=== PATIENT | male | born 1955 | race Caucasian/White ===

== ENCOUNTER 2019-09-08 15:08 | Inpatient (IN) | payer BC ==
[~2019-09-08 15:08] MED LIST: Dexamethasone 4 MG/ML SDV IVPUSH ONE; Glycopyrrolate 0.2 MG/ML 5 ML MDV IV ONE; HYDROmorphone 2 MG/ML SDV IV ONE; Lactated Ringers 1,000 ML IV ONE; Lidocaine 2% 5 ML SDV INJECT ONE; Midazolam 1 MG/ML 2 ML SDV IV ONE; Neostigmine Methylsulfate 10 MG/10 ML MDV IVPUSH ONE; Ondansetron 4 MG/2 ML SDV IVPUSH ONE; Phenylephrine 1% 10 MG/ML SDV IV ONE; Propofol 200 MG/20 ML SDV IV ONE; Rocuronium 100 MG/10 ML MDV IV ONE; Succinylcholine 200 MG/10 ML MDV IV ONE; fentaNYL 100 MCG/2 ML SDV IV ONE
[2019-09-08] MEDS ORDERED: metroNIDAZOLE/Normal Saline 500 MG in Premix Bag 1 BAG IV ONE (15:18)
[2019-09-08] MEDS ORDERED: Sodium Chloride 0.9% 1,000 ML IV SCH (15:30)
[2019-09-08] MEDS ORDERED: Piperacillin/Tazobactam 3.375 GM in Sodium Chloride 0.9% 50 ML IV STA (15:34)
--- NOTE | 2019-09-08 15:40 | EDM.PDOC ---
ED HPI GENERAL MEDICAL PROBLEM - General Chief Complaint: Gastrointestinal Problem Stated Complaint: POSSIBLE APPENDIX RUPTURE Time Seen by Provider: 09/08/19 15:15 Source of Information: Reports: Patient History Limitations: Reports: No Limitations - History of Present Illness INITIAL COMMENTS - FREE TEXT/NARRATIVE: RLQ abd pain since saturday sharp shooting pain , worse with movement gradually got worse , vomited once on saturday no diarrhea or BM has had fever and chills was seen in clinic this am by surgeon and sent in for evaluation Onset Date: 09/06/19 Duration: Day(s): (2), Getting Worse Location: Reports: Abdomen Quality: Reports: Ache, Dull Severity: Moderate Improves with: Reports: Rest Worsens with: Reports: Movement Associated Symptoms: Reports: Diaphoresis, Loss of Appetite, Malaise, Nausea/ Vomiting, Weakness Treatments [employer]: Reports: Acetaminophen Abdominal Pain Score (Numeric/FACES): 5 - Related Data Allergies Allergy/AdvReac Type Severity Reaction Status Date / Time No Known Allergies Allergy Verified 09/08/19 15:21 Home Meds: Home Meds NK [No Known Home Meds] 09/08/19 [History] Past Medical History - Past Surgical History GI Surgical History: Reports: Hernia Repair/Other Social & Family History - Tobacco Use Smoking Status *Q: Never Smoker - Caffeine Use Caffeine Use: Reports: Coffee, Soda - Recreational Drug Use Recreational Drug Use: No ED ROS GENERAL - Review of Systems Review Of Systems: Comprehensive ROS is negative, except as noted in HPI. Constitutional: Reports: Fever, Chills, Malaise, Decreased Appetite HEENT: Reports: No Symptoms Respiratory: Reports: No Symptoms Cardiovascular: Reports: No Symptoms Endocrine: Reports: No Symptoms GI/Abdominal: Reports: Abdominal Pain, Anorexia, Constipation, Decreased Appetite, Nausea : Reports: No Symptoms Musculoskeletal: Reports: No Symptoms Skin: Reports: No Symptoms Neurological: Reports: No Symptoms Psychiatric: Reports: No Symptoms Hematologic/Lymphatic: Reports: No Symptoms ED EXAM, GI/ABD - Physical Exam Exam: See Below Text/Narrative:: in obvious pain Exam Limited By: No Limitations General Appearance: Alert, WD/WN, No Apparent Distress Eyes: Bilateral: EOMI Nose: Normal Inspection Throat/Mouth: Normal Oropharynx Head: Atraumatic, Normocephalic Neck: Normal Inspection, Supple, Non-Tender, Full Range of Motion Respiratory/Chest: Lungs Clear, Normal Breath Sounds Cardiovascular: Regular Rate, Rhythm GI/Abdominal Exam: Soft, Guarding, Tender (in RLQ with guarding and in the right flank), Abnormal Bowel Sounds (hypoactive BS) Back Exam: Full Range of Motion Extremities: Normal Range of Motion Neurological: Alert, Oriented, CN II-XII Intact Psychiatric: Normal Affect Skin Exam: Warm EKG INTERPRETATION EKG Date: 09/08/19 Rhythm: NSR [place]: Normal Course - Vital Signs Last Recorded V/S: Last Vital Signs Temp 37.0 C 09/08/19 15:21 Pulse 108 H 09/08/19 15:21 Resp 24 H 09/08/19 15:21 BP 133/83 09/08/19 15:21 Pulse Ox 98 09/08/19 15:21 - Orders/Labs/Meds Orders: Active Orders 24 hr Category Date Time Status Patient Status [ADT] Routine ADT 09/08/19 16:30 Active EKG Documentation Completion [RC] ASDIRECTED Care 09/08/19 15:23 Active Patient to Empty Bladder [RC] ASDIRECTED Care 09/08/19 16:53 Active Verify Patient Consent Obtain [RC] ASDIRECTED Care 09/08/19 16:53 Active Nothing Per Oral Diet [DIET] Diet 09/08/19 Dinner Ordered Abdomen Pelvis wo Cont [CT] Stat Exams 09/08/19 15:17 Taken Chest 2V [CR] Stat Exams 09/08/19 15:24 Taken CULTURE BLOOD [BC] Stat Lab 09/08/19 15:30 Received Sodium Chloride 0.9% [Normal Saline] 1,000 ml Med 09/08/19 15:30 Active IV ASDIRECTED Sequential Compression Device [OM.PC] Routine Oth 09/08/19 16:53 Ordered Resuscitation Status Routine Resus Stat 09/08/19 16:53 Ordered EKG 12 Lead [EK] Routine Ther 09/08/19 15:23 Ordered Medication Orders Sodium Chloride (Normal Saline) 1,000 mls @ 999 mls/hr IV ASDIRECTED ANALY Last Admin: 09/08/19 15:30 Dose: 999 mls/hr Labs: Laboratory Tests 09/08/19 09/08/19 09/08/19 Range/Units 15:30 15:30 15:30 WBC 24.7 H (4.5-12.0) X10-3/uL RBC 5.81 H (4.30-5.75) x10(6)uL Hgb 16.8 (13.5-17.8) g/dL Hct 51.1 (30.0-51.3) % MCV 88.0 (80-96) fL MCH 29.0 (27.7-33.6) pg MCHC 33.0 (32.2-35.4) g/dL RDW 11.6 (11.5-15.5) % Plt Count 307 (125-369) X10(3)uL MPV 7.9 (7.4-10.4) fL Add Manual Diff Yes Neutrophils % (Manual) 84 H (46-82) % Band Neutrophils % 6 (0-6) % Lymphocytes % (Manual) 2 L (13-37) % Monocytes % (Manual) 6 (4-12) % Basophils % (Manual) 2 (0-2) % Sodium 134 L (135-145) mmol/L Potassium 4.1 (3.5-5.3) mmol/L Chloride 97 L (100-110) mmol/L Carbon Dioxide 28 (21-32) mmol/L BUN 21 H (7-18) mg/dL Creatinine 1.3 (0.70-1.30) mg/dL Est Cr Clr Drug Dosing 54.38 mL/min Estimated GFR (MDRD) 56 L (>60) BUN/Creatinine Ratio 16.2 (9-20) Glucose 143 H (80-116) mg/dL Lactic Acid 2.1 H* (0.4-2.0) mmol/L Calcium 9.1 (8.6-10.2) mg/dL Total Bilirubin 2.4 H (0.1-1.3) mg/dL AST 19 (5-25) IU/L ALT 25 (12-36) U/L Alkaline Phosphatase 99 (56-112) IU/L C-Reactive Protein (0.5-0.9) mg/dL Total Protein 8.7 H (6.0-8.0) g/dL Albumin 4.1 (3.2-4.6) g/dL Globulin 4.6 g/dL Albumin/Globulin Ratio 0.9 03/10/20 Range/Units 15:30 WBC (4.5-12.0) X10-3/uL RBC (4.30-5.75) x10(6)uL Hgb (13.5-17.8) g/dL Hct (30.0-51.3) % MCV (80-96) fL MCH (27.7-33.6) pg MCHC (32.2-35.4) g/dL RDW (11.5-15.5) % Plt Count (125-369) X10(3)uL MPV (7.4-10.4) fL Add Manual Diff Neutrophils % (Manual) (46-82) % Band Neutrophils % (0-6) % Lymphocytes % (Manual) (13-37) % Monocytes % (Manual) (4-12) % Basophils % (Manual) (0-2) % Sodium (135-145) mmol/L Potassium (3.5-5.3) mmol/L Chloride (100-110) mmol/L Carbon Dioxide (21-32) mmol/L BUN (7-18) mg/dL Creatinine (0.70-1.30) mg/dL Est Cr Clr Drug Dosing mL/min Estimated GFR (MDRD) (>60) BUN/Creatinine Ratio (9-20) Glucose (80-116) mg/dL Lactic Acid (0.4-2.0) mmol/L Calcium (8.6-10.2) mg/dL Total Bilirubin (0.1-1.3) mg/dL AST (5-25) IU/L ALT (12-36) U/L Alkaline Phosphatase (56-112) IU/L C-Reactive Protein 14.7 H* (0.5-0.9) mg/dL Total Protein (6.0-8.0) g/dL Albumin (3.2-4.6) g/dL Globulin g/dL Albumin/Globulin Ratio Meds: Medications Generic Name Dose Route Start Last Admin Trade Name Freq PRN Reason Stop Dose Admin Sodium Chloride 1,000 mls @ 999 mls/hr 09/08/19 15:30 09/08/19 15:30 Normal Saline IV 999 mls/hr ASDIRECTED ANALY Administration Discontinued Medications Generic Name Dose Route Start Last Admin Trade Name Freq PRN Reason Stop Dose Admin Metronidazole 500 mg/ Premix 100 mls @ 100 mls/hr 09/08/19 15:18 09/08/19 16: 10 IV 03/10/20 16:17 200 mls/hr ONETIME ONE Infusion Piperacillin Sod/Tazobactam 50 mls @ 100 mls/hr 09/08/19 15:34 09/08/19 15:54 Sod 3.375 gm/ Sodium Chloride IV 09/08/19 16:03 100 mls/hr NOW STA Administration - Radiology Interpretation CT Results Date: 09/08/19 (Acute appendicitis , peritonitis) - Re-Assessments/Exams Free Text/Narrative Re-Assessment/Exam: 09/08/19 15:[address] abd : acute appendicitis ? eminent rupture , no air under the diaphragm started on fluids, flagyl and Zosyn Dr Bonilla aware 09/08/19 16:24 pt is being prep for surgery had EKG and Chest Xray done Departure - Departure Time of Disposition: 16:30 Disposition: Admitted As Inpatient 67 Clinical Impression: Acute appendicitis with localized peritonitis - Discharge Information *PRESCRIPTION DRUG MONITORING PROGRAM REVIEWED*: Not Applicable *COPY OF PRESCRIPTION DRUG MONITORING REPORT IN PATIENT [place]: Not Applicable Sepsis Event Note - Evaluation Sepsis Screening Result: Possible Sepsis Risk - Focused Exam Vital Signs: Vital Signs Temp Pulse Resp BP Pulse Ox 09/08/19 15:21 37.0 C 108 H 24 H 133/83 98 Date Exam was Performed: 09/08/19 Time Exam was Performed: 17:01 - My Orders Last 24 Hours: My Active Orders 09/08/19 15:17 Abdomen Pelvis wo Cont [CT] Stat 09/08/19 15:23 EKG Documentation Completion [RC] ASDIRECTED EKG 12 Lead [EK] Routine 09/08/19 15:24 Chest 2V [CR] Stat 09/08/19 15:30 CULTURE BLOOD [BC] Stat Sodium Chloride 0.9% [Normal Saline] 1,000 ml IV ASDIRECTED - Assessment/Plan Last 24 Hours: My Active Orders 09/08/19 15:17 Abdomen Pelvis wo Cont [CT] Stat 09/08/19 15:23 EKG Documentation Completion [RC] ASDIRECTED EKG 12 Lead [EK] Routine 09/08/19 15:24 Chest 2V [CR] Stat 09/08/19 15:30 CULTURE BLOOD [BC] Stat Sodium Chloride 0.9% [Normal Saline] 1,000 ml IV ASDIRECTED
--- NOTE | 2019-09-08 16:58 | PCM.HPR ---
H & P Addendum review - H & P Addendum Review Date of Original H & P: 09/08/19 Date Reviewed: 09/08/19 Time Reviewed: 16:57 Patient was Examined: No Changes Please Note any Changes: Historyand CT all consistent with acute appendicitis, likely perforated. Will proceed with lap appy, possible open. Risks and complications reviewed, consent obtined.
--- NOTE | 2019-09-08 17:51 | CR ---
INDICATION: Preop chest. CHEST, TWO VIEWS: PA and lateral views of the chest were obtained 09/08/19 - no comparisons. The heart appears to be within normal limits in size and shape. The aorta is somewhat tortuous. Overlying EKG leads are noted. An active infiltrate or effusion was not identified. No definite free air is identified. IMPRESSION: No acute process. MTDD
--- NOTE | 2019-09-08 17:59 | CT ---
INDICATION: Right lower quadrant abdominal pain started Saturday night. Dark urine. CT ABDOMEN AND PELVIS WITHOUT CONTRAST: Spiral 2.5 mm axial sections were obtained through the abdomen and pelvis without contrast - renal calculus protocol with sagittal and coronal reconstructions 09/08/2019 - no comparisons. Total exam DLP was 718.49 mGy/cm. There is some minimal scarring at the right lung base - posterior right lower lobe without a definite active infiltrate or effusion. The heart appeared normal in size. No pericardial effusion is noted. A tiny fixed hiatal hernia may be present. The liver, spleen, adrenal glands, and pancreas appear normal. No gallstones were demonstrated. The gallbladder was somewhat dilated which may be on the basis of NPO basis, measuring 98 mm. There appears to be some mild renal cortical scarring with renal fascial thickening. This could be on the basis of previous pyelonephritis and should be correlated clinically. Minimal calcifications are noted at the aorta. No retroperitoneal mass was seen. The appendix is markedly distended measuring 16 mm with an appendicolith at the cecum measuring 6.6 mm. Fairly extensive fat stranding is noted extending into the right pericolic gutter superiorly and into the pelvis inferiorly compatible with fairly extensive peritonitis. However, no free air or bowel obstruction was identified. The prostate is mildly enlarged measuring 52 x 37 x 39 mm transverse, AP and craniocaudad diameters. Hypertrophic degenerative changes and disc disease are noted in the lumbosacral spine with vacuum disc phenomenon noted at L2-3 and L4-5 and L5-S1. Dextroconvex scoliosis of mild degree is noted at the lower middle lumbar spine IMPRESSION: 1. Appendicitis with fairly extensive peritonitis, some minimal ascites in the pelvis but no definite abscess formation or free air. Appendicolith is noted. 2. Renal cortical scarring. 3. Degenerative changes, disc disease, and scoliosis lumbosacral spine. 4. Mild ASD. Report was called to Dr. Son at 1532 hours. [facility]
[2019-09-08] MEDS ORDERED: Morphine 2 MG/ML Syringe IVPUSH PRN (18:34)
--- NOTE | 2019-09-08 18:34 | PCM.OPNOTE ---
- General Post-Op/Procedure Note Date of Surgery/Procedure: 09/08/19 Operative Procedure(s): Lap Appy Findings: Perforated Pre Op Diagnosis: Acute Appendicitis Post-Op Diagnosis: Same Anesthesia Technique: General ET Tube Primary Surgeon: Chris GALLEGOS in mLs: 20 Complications: None Condition: Good
[2019-09-08] MEDS: Piperacillin/Tazobactam 3.375 GM in Sodium Chloride 0.9% 50 ML IV SCH (20:19)
[2019-09-08] MEDS: Albuterol 0.083% 2.5 MG/3 ML Neb Soln NEB SCH ×2 (20:22→23:57)
--- NOTE | 2019-09-09 01:35 | OR ---
DATE OF OPERATION: 09/08/2019 SURGEON: Chris Bonilla MD PREOPERATIVE DIAGNOSIS: Acute appendicitis. POSTOPERATIVE DIAGNOSIS: Acute appendicitis, perforated. PROCEDURE: Laparoscopic appendectomy. ANESTHESIA: General. PROCEDURE IN DETAIL: The patient was brought to the operating room, where general endotracheal anesthesia was administered. The abdomen was prepped with ChloraPrep and draped sterilely. The patient was straight cathed for approximately 100 mL of dark chante urine prior to the prep. The abdomen was prepped and draped sterilely. An infraumbilical incision was made and extended into the peritoneal cavity without difficulty. The Ethel cannulator was introduced and pneumoperitoneum was obtained. There was purulent fluid in the right lower quadrant and pelvic region. 5 mm ports were then placed in the suprapubic position and half-way between the umbilicus and pubis. The patient was placed in Trendelenburg position and rotated to the left. I had to free up some omentum that was densely adhered to the sidewall with blunt and sharp dissection. I was able to identify the cecum and terminal ileum and a hard inflammatory mass just inferior to that. A large thickened sail was present at the ileocecal junction, preventing me from seeing well and working. Therefore, I used an application of the Endo-SUNNY 3.5 mm stapler to transect this large inflammatory fatty piece. This aided in visualization, and I was able to identify the base of the appendix and free up inferiorly and along the sidewall to partially mobilize it. A window was made at the base of the appendix and transected at the base of the cecum with an Endo-SUNNY 3.5 mm stapler. I was then able to do more mobilization and transect the mesoappendix with 2 more applications of the Endo-SUNNY 2.5 mm stapler. A pulsatile vessel was present at the medial staple line of the first firing, and this was controlled with a hemoclip. Both the appendix and the inflammatory fatty tissue was placed in an Endopouch and removed for pathology review. The right lower quadrant was thoroughly irrigated and inspected and return was clear and hemostasis assured. All staple lines were intact. Ports were removed under direct vision and remained hemostatic. Umbilical fascia was closed with [id number] #0 Vicryl. The skin was closed with #4-0 Vicryl subcuticular sutures. Benzoin and Steri-Strips were placed, and Band-Aids applied. The patient tolerated the procedure well. Estimated blood loss 20 mL. Peritoneal fluid was aspirated at the beginning of the procedure and sent for aerobic and anaerobic culture. /[id number] SIRENA/LILY
[2019-09-09] MEDS: Lactated Ringers 1,000 ML IV SCH ×3 (02:28→20:56)
[2019-09-09] MEDS: Piperacillin/Tazobactam 3.375 GM in Sodium Chloride 0.9% 50 ML IV SCH ×4 (02:30→20:59)
[2019-09-09] MEDS: Albuterol 0.083% 2.5 MG/3 ML Neb Soln NEB SCH ×5 (03:02→21:08)
[2019-09-09] MEDS: Acetaminophen/HYDROcodone 325-5 MG Tab PO PRN ×2 (07:22→20:58)
--- NOTE | 2019-09-09 10:20 | PCM.SURGPN ---
- General Info Date of Service: 09/09/19 POD#: 1 Functional Status: Reports: Pain Controlled, Tolerating Diet (clear liquids), Ambulating, Urinating - Review of Systems General: Reports: No Symptoms. Denies: Fever Pulmonary: Reports: No Symptoms Cardiovascular: Reports: No Symptoms Gastrointestinal: Reports: Abdominal Pain (08/10). Denies: Flatus - Patient Data Vitals - Most Recent: Last Vital Signs Temp 98.1 F 09/09/19 07:10 Pulse 101 H 09/09/19 07:35 Resp 18 09/09/19 07:10 BP 110/75 09/09/19 07:10 Pulse Ox 94 L 09/09/19 07:10 Weight - Most Recent: 74.843 kg I&O - Last 24 Hours: Intake & Output 09/08/19 09/09/19 09/09/19 22:59 06:59 14:59 Intake Total 547 1099 50 Output Total 300 Balance 547 799 50 Lab Results Last 24 Hrs: Laboratory Results - last 24 hr 09/08/19 09/08/19 09/08/19 Range/Units 15:30 15:30 15:30 WBC 24.7 H (4.5-12.0) X10-3/uL RBC 5.81 H (4.30-5.75) x10(6)uL Hgb 16.8 (13.5-17.8) g/dL Hct 51.1 (30.0-51.3) % MCV 88.0 (80-96) fL MCH 29.0 (27.7-33.6) pg MCHC 33.0 (32.2-35.4) g/dL RDW 11.6 (11.5-15.5) % Plt Count 307 (125-369) X10(3)uL MPV 7.9 (7.4-10.4) fL Add Manual Diff Yes Neutrophils % (Manual) 84 H (46-82) % Band Neutrophils % 6 (0-6) % Lymphocytes % (Manual) 2 L (13-37) % Monocytes % (Manual) 6 (4-12) % Basophils % (Manual) 2 (0-2) % Hypersegmented Neuts Sodium 134 L (135-145) mmol/L Potassium 4.1 (3.5-5.3) mmol/L Chloride 97 L (100-110) mmol/L Carbon Dioxide 28 (21-32) mmol/L BUN 21 H (7-18) mg/dL Creatinine 1.3 (0.70-1.30) mg/dL Est Cr Clr Drug Dosing 54.38 mL/min Estimated GFR (MDRD) 56 L (>60) BUN/Creatinine Ratio 16.2 (9-20) Glucose 143 H (80-116) mg/dL Lactic Acid 2.1 H* (0.4-2.0) mmol/L Calcium 9.1 (8.6-10.2) mg/dL Total Bilirubin 2.4 H (0.1-1.3) mg/dL AST 19 (5-25) IU/L ALT 25 (12-36) U/L Alkaline Phosphatase 99 (56-112) IU/L C-Reactive Protein (0.5-0.9) mg/dL Total Protein 8.7 H (6.0-8.0) g/dL Albumin 4.1 (3.2-4.6) g/dL Globulin 4.6 g/dL Albumin/Globulin Ratio 0.9 09/08/19 09/09/19 Range/Units 15:30 06:00 WBC 18.0 H (4.5-12.0) X10-3/uL RBC 4.45 (4.30-5.75) x10(6)uL Hgb 12.8 L D (13.5-17.8) g/dL Hct 39.2 D (30.0-51.3) % MCV 88.1 (80-96) fL MCH 28.9 (27.7-33.6) pg MCHC 32.8 (32.2-35.4) g/dL RDW 11.7 (11.5-15.5) % Plt Count 232 (125-369) X10(3)uL MPV 7.5 (7.4-10.4) fL Add Manual Diff Yes Neutrophils % (Manual) 95 H (46-82) % Band Neutrophils % (0-6) % Lymphocytes % (Manual) 2 L (13-37) % Monocytes % (Manual) 3 L (4-12) % Basophils % (Manual) (0-2) % Hypersegmented Neuts Few Sodium (135-145) mmol/L Potassium (3.5-5.3) mmol/L Chloride (100-110) mmol/L Carbon Dioxide (21-32) mmol/L BUN (7-18) mg/dL Creatinine (0.70-1.30) mg/dL Est Cr Clr Drug Dosing mL/min Estimated GFR (MDRD) (>60) BUN/Creatinine Ratio (9-20) Glucose (80-116) mg/dL Lactic Acid (0.4-2.0) mmol/L Calcium (8.6-10.2) mg/dL Total Bilirubin (0.1-1.3) mg/dL AST (5-25) IU/L ALT (12-36) U/L Alkaline Phosphatase (56-112) IU/L C-Reactive Protein 14.7 H* (0.5-0.9) mg/dL Total Protein (6.0-8.0) g/dL Albumin (3.2-4.6) g/dL Globulin g/dL Albumin/Globulin Ratio Med Orders - Current: Current Medications Hydrocodone Bitart/Acetaminophen (Doran 325-5 Mg) 1 tab PO Q4H PRN PRN Reason: Pain (mild 1-3) Last Admin: 09/09/19 07:22 Dose: 1 tab Albuterol (Proventil Neb Soln) 2.5 mg NEB Q4H [facility] Last Admin: 09/09/19 07:23 Dose: 2.5 mg Piperacillin Sod/Tazobactam (Sod 3.375 gm/ Sodium Chloride) 50 mls @ 100 mls/ hr IV Q6H [facility] Stop: 09/13/19 21:01 Last Admin: 09/09/19 08:25 Dose: 100 mls/hr Lactated Ringer's (Ringers, Lactated) 1,000 mls @ 125 mls/hr IV ASDIRECTED [facility] Last Admin: 09/09/19 02:28 Dose: 125 mls/hr Morphine Sulfate (Morphine) 2 mg IVPUSH Q1H PRN PRN Reason: Pain (severe 7-10) Discontinued Medications Sodium Chloride (Normal Saline) 1,000 mls @ 999 mls/hr IV ASDIRECTED [facility] Last Admin: 09/08/19 15:30 Dose: 999 mls/hr Metronidazole 500 mg/ Premix 100 mls @ 100 mls/hr IV ONETIME ONE Stop: 09/08/19 16:17 Last Infusion: 09/08/19 16:10 Dose: 200 mls/hr Piperacillin Sod/Tazobactam (Sod 3.375 gm/ Sodium Chloride) 50 mls @ 100 mls/ hr IV NOW STA Stop: 09/08/19 16:03 Last Admin: 09/08/19 15:54 Dose: 100 mls/hr - Exam Wound/Incisions: Healing Well, Dressing Dry and Intact General: Alert, Oriented GI/Abdominal Exam: Soft, Non-Tender Sepsis Event Note - Evaluation Sepsis Screening Result: No Definite Risk - Focused Exam Vital Signs: Vital Signs Temp Pulse Resp BP Pulse Ox 09/09/19 07:35 101 H 09/09/19 07:23 85 09/09/19 07:10 98.1 F 85 18 110/75 94 L 09/09/19 03:02 82 09/09/19 00:02 98.4 F 82 18 111/46 L 94 L 09/08/19 23:58 94 Date Exam was Performed: 09/09/19 Time Exam was Performed: 10:18 - Problem List Review Problem List Initiated/Reviewed/Updated: Yes - My Orders Last 24 Hours: Active Orders 24 hr Category Date Time Status Admission Status [Patient Status] [ADT] Routine ADT 09/08/19 18:37 Active Patient Status [ADT] Routine ADT 09/08/19 16:30 Active Oxygen Therapy Adult [Oxygen Therapy, ED] [RC] Care 09/08/19 18:54 Active ASDIRECTED Patient to Empty Bladder [RC] ASDIRECTED Care 09/08/19 16:53 Active RT Aerosol Therapy [RC] ASDIRECTED Care 09/08/19 18:53 Active RT Incentive Spirometry [RC] Q2HWA Care 09/08/19 18:34 Active Up With Assistance [RC] QSHIFT Care 09/08/19 18:34 Active Vital Signs [RC] PER UNIT ROUTINE Care 09/08/19 18:34 Active Clear Liquid Diet [DIET] Diet 09/09/19 Breakfast Ordered Nothing Per Oral Diet [DIET] Diet 09/08/19 Dinner Ordered CBC WITH AUTO DIFF [HEME] DAILY Lab 09/10/19 05:11 Ordered CBC WITH AUTO DIFF [HEME] DAILY Lab 09/11/19 05:11 Ordered CULTURE ANAEROBIC [RM] Routine Lab 09/08/19 17:48 Received CULTURE BLOOD [BC] Stat Lab 09/08/19 15:30 Received CULTURE ROUTINE + SMEAR [RM] Routine Lab 09/08/19 17:48 Received Acetaminophen/HYDROcodone [Doran 325-5 MG] Med 09/08/19 18:34 Active 1 tab PO Q4H PRN Albuterol [Proventil Neb Soln] Med 09/08/19 20:00 Active 2.5 mg NEB Q4H Lactated Ringers [Ringers, Lactated] 1,000 ml Med 09/08/19 19:00 Active IV ASDIRECTED Morphine Med 09/08/19 18:34 Active 2 mg IVPUSH Q1H PRN Piperacillin/Tazobactam [Zosyn] 3.375 gm Med 09/08/19 21:00 Active Sodium Chloride 0.9% [Normal Saline] 50 ml IV Q6H SCD [Sequential Compression Device] [OM.PC] Routine Oth 09/08/19 18:39 Ordered Sequential Compression Device [OM.PC] Routine Oth 09/08/19 16:53 Ordered Resuscitation Status Routine Resus Stat 09/08/19 16:53 Ordered EKG 12 Lead [EK] Routine Ther 09/08/19 15:23 Ordered Medication Orders Hydrocodone Bitart/Acetaminophen (Doran 325-5 Mg) 1 tab PO Q4H PRN PRN Reason: Pain (mild 1-3) Last Admin: 09/09/19 07:22 Dose: 1 tab Albuterol (Proventil Neb Soln) 2.5 mg NEB Q4H ANALY Last Admin: 09/09/19 07:23 Dose: 2.5 mg Admin: 09/09/19 03:02 Dose: 2.5 mg Admin: 09/08/19 23:57 Dose: 2.5 mg Admin: 09/08/19 20:22 Dose: 2.5 mg Piperacillin Sod/Tazobactam (Sod 3.375 gm/ Sodium Chloride) 50 mls @ 100 mls/ hr IV Q6H ANALY Stop: 09/13/19 21:01 Last Admin: 09/09/19 08:25 Dose: 100 mls/hr Admin: 09/09/19 02:30 Dose: 100 mls/hr Admin: 09/08/19 20:19 Dose: 100 mls/hr Lactated Ringer's (Ringers, Lactated) 1,000 mls @ 125 mls/hr IV ASDIRECTED ANALY Last Admin: 09/09/19 02:28 Dose: 125 mls/hr Morphine Sulfate (Morphine) 2 mg IVPUSH Q1H PRN PRN Reason: Pain (severe 7-10) - Assessment Assessment (Free Text/Narrative):: Doing well, cont cleat liquids WBC down to 18 - Plan Plan (Free Text/Narrative):: Cont as is
[2019-09-10] MEDS: Albuterol 0.083% 2.5 MG/3 ML Neb Soln NEB SCH ×3 (01:58→07:28)
[2019-09-10] MEDS: Piperacillin/Tazobactam 3.375 GM in Sodium Chloride 0.9% 50 ML IV SCH ×4 (03:31→20:47)
[2019-09-10] MEDS: Lactated Ringers 1,000 ML IV SCH ×3 (06:16→23:04)
[2019-09-10] MEDS: Acetaminophen/HYDROcodone 325-5 MG Tab PO PRN ×2 (07:27→12:22)
[2019-09-10] MEDS ORDERED: Iopamidol 755 Mg/ML 100 ML Bottle IV ONE (12:31)
[2019-09-10] MEDS: Ketorolac 30 MG/ML SDV IVPUSH SCH ×2 (13:55→18:57)
[2019-09-10] MEDS: Pantoprazole 40 MG Vial IVPUSH SCH (13:56)
--- NOTE | 2019-09-10 14:02 | CT ---
INDICATION: Question ileus, patient has bloating and generalized pain, is status post appendectomy Saturday. CT ABDOMEN AND PELVIS WITH CONTRAST: Spiral 3.75 mm axial sections were obtained through the abdomen and pelvis with 100 mL Isovue 370 at 2 mL/sec, with sagittal and coronal reconstructions 09/10/19 and compared with 09/08/19. Total exam DLP was 942.86 mGy-cm. There is a new finding of bibasilar pleural parenchymal change compatible with minimal consolidating pneumonia and pleuritis on the left and moderate consolidating and pleuritis on the right. There may be some atelectasis also in these areas of the lower lobes bilaterally. The heart appears enlarged. No pericardial effusion was seen. No change in appearance of the upper abdominal organs was identified except to note fairly marked dilatation of the small bowel extending to the level of the upper pelvis where bowel loops transition to relatively normal caliber. They still appear somewhat distended and are filled with air-fluid levels scattered throughout the small bowel loops. No evidence of free air was seen. There is some ascites, which remains present in the pelvis - was present on the previous study also - preoperatively. There is some fat stranding in the area of the postsurgical site compatible with postsurgical change. However, no definite abscess formation is identified. IMPRESSION: Fairly marked dilatation of the small bowel, especially the jejunum , with transition to a smaller diameter distal jejunum - ileum in the mid-upper pelvis - lower abdomen. There is some minimal fluid in that area. There is pelvic ascites, which was present previously and appears unchanged. The operative site shows evidence of postsurgical change - fat stranding, but no definite abscess formation or perforation. Report was given by phone to Dr. Bonilla at 1305 hours. [place]
--- NOTE | 2019-09-10 18:21 | PCM.SURGPN ---
- General Info Date of Service: 09/10/19 POD#: 2 Functional Status: Reports: Pain Controlled, Ambulating, Urinating, Incentive Spirometry - Review of Systems General: Reports: No Symptoms Pulmonary: Reports: Shortness of Breath (due to distended abdomen and ileus) Gastrointestinal: Reports: Abdominal Pain (better after starting to pass flatus this afternoon) Genitourinary: Reports: No Symptoms - Patient Data Vitals - Most Recent: Last Vital Signs Temp 100.0 F 09/10/19 12:15 Pulse 83 09/10/19 12:15 Resp 18 09/10/19 12:15 BP 146/96 H 09/10/19 12:15 Pulse Ox 93 L 09/10/19 12:15 Weight - Most Recent: 74.843 kg I&O - Last 24 Hours: Intake & Output 09/10/19 09/10/19 09/10/19 06:59 14:59 22:59 Intake Total 857 1340 Balance 857 1340 Lab Results Last 24 Hrs: Laboratory Results - last 24 hr 09/10/19 09/10/19 Range/Units 06:45 13:50 WBC 13.3 H (4.5-12.0) X10-3/uL RBC 4.22 L (4.30-5.75) x10(6)uL Hgb 12.6 L (13.5-17.8) g/dL Hct 36.9 (30.0-51.3) % MCV 87.5 (80-96) fL MCH 29.8 (27.7-33.6) pg MCHC 34.1 (32.2-35.4) g/dL RDW 12.0 (11.5-15.5) % Plt Count 224 (125-369) X10(3)uL MPV 7.5 (7.4-10.4) fL Add Manual Diff Yes Neutrophils % (Manual) 89 H (46-82) % Lymphocytes % (Manual) 8 L (13-37) % Monocytes % (Manual) 3 L (4-12) % Sodium 137 (135-145) mmol/L Potassium 4.5 (3.5-5.3) mmol/L Chloride 101 (100-110) mmol/L Carbon Dioxide 29 (21-32) mmol/L BUN 18 (7-18) mg/dL Creatinine 1.1 (0.70-1.30) mg/dL Est Cr Clr Drug Dosing 64.26 mL/min Estimated GFR (MDRD) > 60 (>60) BUN/Creatinine Ratio 16.4 (9-20) Glucose 107 (80-116) mg/dL Calcium 8.1 L (8.6-10.2) mg/dL Sumeet Results Last 24 Hrs: Microbiology 09/08/19 15:30 Aerobic Blood Culture - Preliminary Blood NO GROWTH AFTER 2 DAYS Anaerobic Blood Culture - Preliminary NO GROWTH AFTER 2 DAYS 09/08/19 17:48 Gram Stain - Final Peritoneal Fluid Routine Culture - Final Med Orders - Current: Current Medications Piperacillin Sod/Tazobactam (Sod 3.375 gm/ Sodium Chloride) 50 mls @ 100 mls/ hr IV Q6H [facility] [place] Stop: 09/13/19 21:01 Last Admin: 09/10/19 14:47 Dose: 100 mls/hr Lactated Ringer's (Ringers, Lactated) 1,000 mls @ 125 mls/hr IV ASDIRECTED [facility] [place] Last Admin: 09/10/19 14:01 Dose: 125 mls/hr Ketorolac Tromethamine (Toradol) 30 mg IVPUSH Q6H [facility] [place] Stop: 09/15/19 13:37 Last Admin: 09/10/19 13:55 Dose: 30 mg Pantoprazole Sodium (Protonix Iv) 40 mg IVPUSH DAILY [facility] [place] Last Admin: 09/10/19 13:56 Dose: 40 mg Discontinued Medications Hydrocodone Bitart/Acetaminophen ([place] 325-5 Mg) 1 tab PO Q4H PRN PRN Reason: Pain (mild 1-3) Last Admin: 09/10/19 12:22 Dose: 1 tab Albuterol (Proventil Neb Soln) 2.5 mg NEB Q4H [facility] [place] Last Admin: 09/10/19 07:28 Dose: Not Given Sodium Chloride (Normal Saline) 1,000 mls @ 999 mls/hr IV ASDIRECTED [facility] [place] Last Admin: 09/08/19 15:30 Dose: 999 mls/hr Metronidazole 500 mg/ Premix 100 mls @ 100 mls/hr IV ONETIME ONE Stop: 09/08/19 16:17 Last Infusion: 09/08/19 16:10 Dose: 200 mls/hr Piperacillin Sod/Tazobactam (Sod 3.375 gm/ Sodium Chloride) 50 mls @ 100 mls/ hr IV NOW STA Stop: 09/08/19 16:03 Last Admin: 09/08/19 15:54 Dose: 100 mls/hr Iopamidol (Isovue-370 (76%)) 100 ml IV . DIRECTED ONE Stop: 09/10/19 12:32 Last Admin: 09/10/19 12:44 Dose: 100 ml Morphine Sulfate (Morphine) 2 mg IVPUSH Q1H PRN PRN Reason: Pain (severe 7-10) - Exam Wound/Incisions: Dressing Dry and Intact Lungs: Clear to Auscultation, Decreased Breath Sounds (in bases) GI/Abdominal Exam: Distended Sepsis Event Note - Evaluation Sepsis Screening Result: Sepsis Risk - Focused Exam Vital Signs: Vital Signs Temp Pulse Resp BP Pulse Ox 09/10/19 12:15 100.0 F 83 18 146/96 H 93 L 09/10/19 07:15 99.4 F 92 18 146/101 H 92 L Date Exam was Performed: 09/10/19 Time Exam was Performed: 18:15 - Problem List Review Problem List Initiated/Reviewed/Updated: Yes - My Orders Last 24 Hours: Active Orders 24 hr Category Date Time Status Intake and Output [RC] ASDIRECTED Care 09/10/19 13:10 Active NPO [Nothing Per Oral Diet] [DIET] Diet 09/10/19 Dinner Active CBC WITH AUTO DIFF [HEME] DAILY Lab 09/11/19 05:11 Ordered Ketorolac [Toradol] Med 09/10/19 13:10 Active 30 mg IVPUSH Q6H Pantoprazole [ProTONIX IV] Med 09/10/19 13:10 Active 40 mg IVPUSH DAILY Medication Orders Piperacillin Sod/Tazobactam (Sod 3.375 gm/ Sodium Chloride) 50 mls @ 100 mls/ hr IV Q6H [facility] Stop: 09/13/19 21:01 Last Admin: 09/10/19 14:47 Dose: 100 mls/hr Admin: 09/10/19 09:54 Dose: 100 mls/hr Admin: 09/10/19 03:31 Dose: 100 mls/hr Admin: 09/09/19 20:59 Dose: 100 mls/hr Admin: 09/09/19 14:57 Dose: 100 mls/hr Admin: 09/09/19 08:25 Dose: 100 mls/hr Admin: 09/09/19 02:30 Dose: 100 mls/hr Admin: 09/08/19 20:19 Dose: 100 mls/hr Lactated Ringer's (Ringers, Lactated) 1,000 mls @ 125 mls/hr IV ASDIRECTED [facility] [place] Last Admin: 09/10/19 14:01 Dose: 125 mls/hr Infusion: 09/10/19 14:01 Dose: 125 mls/hr Admin: 09/10/19 06:16 Dose: 125 mls/hr Infusion: 09/10/19 04:56 Dose: 125 mls/hr Admin: 09/09/19 20:56 Dose: 125 mls/hr Infusion: 09/09/19 20:20 Dose: 125 mls/hr Admin: 09/09/19 12:20 Dose: 125 mls/hr Infusion: 09/09/19 10:28 Dose: 125 mls/hr Admin: 09/09/19 02:28 Dose: 125 mls/hr Ketorolac Tromethamine (Toradol) 30 mg IVPUSH Q6H [facility] [place] Stop: 09/15/19 13:37 Last Admin: 09/10/19 13:55 Dose: 30 mg Pantoprazole Sodium (Protonix Iv) 40 mg IVPUSH DAILY [facility] [place] Last Admin: 09/10/19 13:56 Dose: 40 mg - Assessment Assessment (Free Text/Narrative):: CT shows dilated small bowel, no free air Clinically has atelectasis rather than pneumonia Cultures show E Coli sensitive to Zosyn - Plan Plan (Free Text/Narrative):: Will keep NPO and Cont IV Fluids D/C narcotics and use Toradol Encourage IS and walking
[2019-09-11] MEDS: Ketorolac 30 MG/ML SDV IVPUSH SCH ×4 (01:35→19:03)
[2019-09-11] MEDS: Piperacillin/Tazobactam 3.375 GM in Sodium Chloride 0.9% 50 ML IV SCH ×4 (03:06→21:13)
[2019-09-11] MEDS: Lactated Ringers 1,000 ML IV SCH ×2 (07:48→17:19)
[2019-09-11] MEDS: Pantoprazole 40 MG Vial IVPUSH SCH (09:07)
--- NOTE | 2019-09-11 10:28 | PCM.SURGPN ---
- General Info Date of Service: 09/11/19 POD#: 3 Functional Status: Reports: Pain Controlled, Ambulating - Review of Systems General: Reports: No Symptoms. Denies: Fever Pulmonary: Reports: No Symptoms Gastrointestinal: Reports: Flatus. Denies: Abdominal Pain - Patient Data Vitals - Most Recent: Last Vital Signs Temp 98.4 F 09/11/19 04:00 Pulse 82 09/11/19 04:00 Resp 18 09/11/19 04:00 BP 149/97 H 09/11/19 04:00 Pulse Ox 93 L 09/11/19 04:00 Weight - Most Recent: 74.843 kg I&O - Last 24 Hours: Intake & Output 09/10/19 09/11/19 09/11/19 22:59 06:59 14:59 Intake Total 1829 Balance 1829 Lab Results Last 24 Hrs: Laboratory Results - last 24 hr 09/10/19 09/11/19 Range/Units 13:50 06:40 WBC 11.5 (4.5-12.0) X10-3/uL RBC 4.28 L (4.30-5.75) x10(6)uL Hgb 12.7 L (13.5-17.8) g/dL Hct 37.4 (30.0-51.3) % MCV 87.4 (80-96) fL MCH 29.7 (27.7-33.6) pg MCHC 34.0 (32.2-35.4) g/dL RDW 11.5 (11.5-15.5) % Plt Count 218 (125-369) X10(3)uL MPV 7.4 (7.4-10.4) fL Add Manual Diff Yes Neutrophils % (Manual) 83 H (46-82) % Lymphocytes % (Manual) 12 L (13-37) % Monocytes % (Manual) 5 (4-12) % Sodium 137 (135-145) mmol/L Potassium 4.5 (3.5-5.3) mmol/L Chloride 101 (100-110) mmol/L Carbon Dioxide 29 (21-32) mmol/L BUN 18 (7-18) mg/dL Creatinine 1.1 (0.70-1.30) mg/dL Est Cr Clr Drug Dosing 64.26 mL/min Estimated GFR (MDRD) > 60 (>60) BUN/Creatinine Ratio 16.4 (9-20) Glucose 107 (80-116) mg/dL Calcium 8.1 L (8.6-10.2) mg/dL [place] Results Last 24 Hrs: Microbiology 09/08/19 15:30 Aerobic Blood Culture - Preliminary Blood NO GROWTH AFTER 2 DAYS Anaerobic Blood Culture - Preliminary NO GROWTH AFTER 2 DAYS 09/08/19 17:48 Gram Stain - Final Peritoneal Fluid Routine Culture - Final Med Orders - Current: Current Medications Piperacillin Sod/Tazobactam (Sod 3.375 gm/ Sodium Chloride) 50 mls @ 100 mls/ hr IV Q6H [facility] Stop: 09/13/19 21:01 Last Admin: 09/11/19 09:08 Dose: 100 mls/hr Lactated Ringer's (Ringers, Lactated) 1,000 mls @ 125 mls/hr IV ASDIRECTED [facility] Last Admin: 09/11/19 07:48 Dose: 125 mls/hr Ketorolac Tromethamine (Toradol) 30 mg IVPUSH Q6H [facility] Stop: 09/15/19 13:37 Last Admin: 09/11/19 07:47 Dose: 30 mg Pantoprazole Sodium (Protonix Iv) 40 mg IVPUSH DAILY [facility] Last Admin: 09/11/19 09:07 Dose: 40 mg Discontinued Medications Hydrocodone Bitart/Acetaminophen ([place] 325-5 Mg) 1 tab PO Q4H PRN PRN Reason: Pain (mild 1-3) Last Admin: 09/10/19 12:22 Dose: 1 tab Albuterol (Proventil Neb Soln) 2.5 mg NEB Q4H [facility] Last Admin: 09/10/19 07:28 Dose: Not Given Sodium Chloride (Normal Saline) 1,000 mls @ 999 mls/hr IV ASDIRECTED [facility] Last Admin: 09/08/19 15:30 Dose: 999 mls/hr Metronidazole 500 mg/ Premix 100 mls @ 100 mls/hr IV ONETIME ONE Stop: 09/08/19 16:17 Last Infusion: 09/08/19 16:10 Dose: 200 mls/hr Piperacillin Sod/Tazobactam (Sod 3.375 gm/ Sodium Chloride) 50 mls @ 100 mls/ hr IV NOW STA Stop: 09/08/19 16:03 Last Admin: 09/08/19 15:54 Dose: 100 mls/hr Iopamidol (Isovue-370 (76%)) 100 ml IV . DIRECTED ONE Stop: 09/10/19 12:32 Last Admin: 09/10/19 12:44 Dose: 100 ml Morphine Sulfate (Morphine) 2 mg IVPUSH Q1H PRN PRN Reason: Pain (severe 7-10) - Exam Wound/Incisions: Dressing Dry and Intact General: Alert, Oriented GI/Abdominal Exam: Soft, Non-Tender, Distended Sepsis Event Note - Evaluation Sepsis Screening Result: No Definite Risk - Focused Exam Vital Signs: Vital Signs Temp Pulse Resp BP Pulse Ox 09/11/19 04:00 98.4 F 82 18 149/97 H 93 L 09/11/19 00:00 98.4 F 83 18 150/95 H 94 L Date Exam was Performed: 09/11/19 Time Exam was Performed: 10:26 - Problem List Review Problem List Initiated/Reviewed/Updated: Yes - My Orders Last 24 Hours: Active Orders 24 hr Category Date Time Status Intake and Output [RC] ASDIRECTED Care 09/10/19 13:10 Active Full Liquid Diet [DIET] Diet 09/11/19 Lunch Ordered NPO [Nothing Per Oral Diet] [DIET] Diet 09/10/19 Dinner Active Ketorolac [Toradol] Med 09/10/19 13:10 Active 30 mg IVPUSH Q6H Pantoprazole [ProTONIX IV] Med 09/10/19 13:10 Active 40 mg IVPUSH DAILY Medication Orders Piperacillin Sod/Tazobactam (Sod 3.375 gm/ Sodium Chloride) 50 mls @ 100 mls/ hr IV Q6H [facility] Stop: 09/13/19 21:01 Last Admin: 09/11/19 09:08 Dose: 100 mls/hr Admin: 09/11/19 03:06 Dose: 100 mls/hr Admin: 09/10/19 20:47 Dose: 100 mls/hr Admin: 09/10/19 14:47 Dose: 100 mls/hr Admin: 09/10/19 09:54 Dose: 100 mls/hr Admin: 09/10/19 03:31 Dose: 100 mls/hr Admin: 09/09/19 20:59 Dose: 100 mls/hr Admin: 09/09/19 14:57 Dose: 100 mls/hr Admin: 09/09/19 08:25 Dose: 100 mls/hr Admin: 09/09/19 02:30 Dose: 100 mls/hr Admin: 09/08/19 20:19 Dose: 100 mls/hr Lactated Ringer's (Ringers, Lactated) 1,000 mls @ 125 mls/hr IV ASDIRECTED [facility] Last Admin: 09/11/19 07:48 Dose: 125 mls/hr Infusion: 09/11/19 07:04 Dose: 125 mls/hr Admin: 09/10/19 23:04 Dose: 125 mls/hr Infusion: 09/10/19 22:01 Dose: 125 mls/hr Admin: 09/10/19 14:01 Dose: 125 mls/hr Infusion: 09/10/19 14:01 Dose: 125 mls/hr Admin: 09/10/19 06:16 Dose: 125 mls/hr Infusion: 09/10/19 04:56 Dose: 125 mls/hr Admin: 09/09/19 20:56 Dose: 125 mls/hr Infusion: 09/09/19 20:20 Dose: 125 mls/hr Admin: 09/09/19 12:20 Dose: 125 mls/hr Infusion: 09/09/19 10:28 Dose: 125 mls/hr Admin: 09/09/19 02:28 Dose: 125 mls/hr Ketorolac Tromethamine (Toradol) 30 mg IVPUSH Q6H [facility] Stop: 09/15/19 13:37 Last Admin: 09/11/19 07:47 Dose: 30 mg Admin: 09/11/19 01:35 Dose: 30 mg Admin: 09/10/19 18:57 Dose: 30 mg Admin: 09/10/19 13:55 Dose: 30 mg Pantoprazole Sodium (Protonix Iv) 40 mg IVPUSH DAILY [facility] Last Admin: 09/11/19 09:07 Dose: 40 mg Admin: 09/10/19 13:56 Dose: 40 mg - Assessment Assessment (Free Text/Narrative):: Cont to slowly improve - Plan Plan (Free Text/Narrative):: Await ileus to resolve Start liquids again
[2019-09-11] MEDS: Sodium Chloride 0.9% 10 ML Syringe FLUSH PRN ×3 (15:50→21:43)
[2019-09-12] MEDS: Ketorolac 30 MG/ML SDV IVPUSH SCH ×4 (00:19→19:13)
[2019-09-12] MEDS: Lactated Ringers 1,000 ML IV SCH (01:38)
[2019-09-12] MEDS: Sodium Chloride 0.9% 10 ML Syringe FLUSH PRN ×9 (02:43→22:02)
[2019-09-12] MEDS: Piperacillin/Tazobactam 3.375 GM in Sodium Chloride 0.9% 50 ML IV SCH ×4 (02:44→21:28)
[2019-09-12] MEDS: Pantoprazole 40 MG Vial IVPUSH SCH (09:12)
[2019-09-12] MEDS ORDERED: Bisacodyl 10 MG Supp RECTAL ONE (13:17)
--- NOTE | 2019-09-12 13:20 | PCM.SURGPN ---
- General Info Date of Service: 09/12/19 POD#: 4 Functional Status: Reports: Pain Controlled, Tolerating Diet (only sips of liquids), Ambulating - Review of Systems General: Reports: No Symptoms Pulmonary: Reports: No Symptoms Gastrointestinal: Denies: Abdominal Pain, Flatus (since last pm, small BM last pm) - Patient Data Vitals - Most Recent: Last Vital Signs Temp 98.3 F 09/12/19 04:00 Pulse 80 09/12/19 04:00 Resp 16 09/12/19 04:00 BP 143/106 H 09/12/19 04:00 Pulse Ox 94 L 09/12/19 04:00 Weight - Most Recent: 74.843 kg I&O - Last 24 Hours: Intake & Output 09/11/19 09/12/19 09/12/19 22:59 06:59 14:59 Intake Total 1997 1311 1515 Output Total 150 430 175 Balance 9648 302 4726 [place] Results Last 24 Hrs: Microbiology 09/08/19 15:30 Aerobic Blood Culture - Preliminary Blood NO GROWTH AFTER 3 DAYS Anaerobic Blood Culture - Preliminary NO GROWTH AFTER 3 DAYS Med Orders - Current: Current Medications Piperacillin Sod/Tazobactam (Sod 3.375 gm/ Sodium Chloride) 50 mls @ 100 mls/ hr IV Q6H [facility] Stop: 09/13/19 21:01 Last Admin: 09/12/19 09:23 Dose: 100 mls/hr Lactated Ringer's (Ringers, Lactated) 1,000 mls @ 125 mls/hr IV ASDIRECTED [facility] Last Admin: 09/12/19 01:38 Dose: 125 mls/hr Ketorolac Tromethamine (Toradol) 30 mg IVPUSH Q6H [facility] Stop: 09/15/19 13:37 Last Admin: 09/12/19 12:48 Dose: 30 mg Pantoprazole Sodium (Protonix Iv) 40 mg IVPUSH DAILY [facility] Last Admin: 09/12/19 09:12 Dose: 40 mg Sodium Chloride (Saline Flush) 10 ml FLUSH ASDIRECTED PRN PRN Reason: Keep Vein Open Last Admin: 09/12/19 12:48 Dose: 10 ml Discontinued Medications Hydrocodone Bitart/Acetaminophen ([place] 325-5 Mg) 1 tab PO Q4H PRN PRN Reason: Pain (mild 1-3) Last Admin: 09/10/19 12:22 Dose: 1 tab Albuterol (Proventil Neb Soln) 2.5 mg NEB Q4H [facility] Last Admin: 09/10/19 07:28 Dose: Not Given Sodium Chloride (Normal Saline) 1,000 mls @ 999 mls/hr IV ASDIRECTED [facility] Last Admin: 09/08/19 15:30 Dose: 999 mls/hr Metronidazole 500 mg/ Premix 100 mls @ 100 mls/hr IV ONETIME ONE Stop: 09/08/19 16:17 Last Infusion: 09/08/19 16:10 Dose: 200 mls/hr Piperacillin Sod/Tazobactam (Sod 3.375 gm/ Sodium Chloride) 50 mls @ 100 mls/ hr IV NOW STA Stop: 09/08/19 16:03 Last Admin: 09/08/19 15:54 Dose: 100 mls/hr Iopamidol (Isovue-370 (76%)) 100 ml IV . DIRECTED ONE Stop: 09/10/19 12:32 Last Admin: 09/10/19 12:44 Dose: 100 ml Morphine Sulfate (Morphine) 2 mg IVPUSH Q1H PRN PRN Reason: Pain (severe 7-10) - Exam Wound/Incisions: Dressing Dry and Intact GI/Abdominal Exam: Soft, Non-Tender, Distended Sepsis Event Note - Evaluation Sepsis Screening Result: No Definite Risk - Focused Exam Vital Signs: Vital Signs Temp Pulse Resp BP Pulse Ox 09/12/19 04:00 98.3 F 80 16 143/106 H 94 L Date Exam was Performed: 09/12/19 Time Exam was Performed: 13:17 - Problem List Review Problem List Initiated/Reviewed/Updated: Yes - My Orders Last 24 Hours: Active Orders 24 hr Category Date Time Status Communication Order [RC] 08 Care 09/11/19 18:51 Active No Tray Needed Diet [DIET] Diet 09/12/19 Lunch Ordered Sodium Chloride 0.9% [Saline Flush] Med 09/11/19 14:17 Active 10 ml FLUSH ASDIRECTED PRN bisacodyL [Dulcolax] Med 09/12/19 13:17 Once 10 mg RECTAL ONETIME ONE Medication Orders Piperacillin Sod/Tazobactam (Sod 3.375 gm/ Sodium Chloride) 50 mls @ 100 mls/ hr IV Q6H [facility] Stop: 09/13/19 21:01 Last Admin: 09/12/19 09:23 Dose: 100 mls/hr Admin: 09/12/19 02:44 Dose: 100 mls/hr Admin: 09/11/19 21:13 Dose: 100 mls/hr Admin: 09/11/19 15:50 Dose: 100 mls/hr Admin: 09/11/19 09:08 Dose: 100 mls/hr Admin: 09/11/19 03:06 Dose: 100 mls/hr Admin: 09/10/19 20:47 Dose: 100 mls/hr Admin: 09/10/19 14:47 Dose: 100 mls/hr Admin: 09/10/19 09:54 Dose: 100 mls/hr Admin: 09/10/19 03:31 Dose: 100 mls/hr Admin: 09/09/19 20:59 Dose: 100 mls/hr Admin: 09/09/19 14:57 Dose: 100 mls/hr Admin: 09/09/19 08:25 Dose: 100 mls/hr Admin: 09/09/19 02:30 Dose: 100 mls/hr Admin: 09/08/19 20:19 Dose: 100 mls/hr Lactated Ringer's (Ringers, Lactated) 1,000 mls @ 125 mls/hr IV ASDIRECTED [facility] Last Admin: 09/12/19 01:38 Dose: 125 mls/hr Infusion: 09/12/19 01:19 Dose: 125 mls/hr Admin: 09/11/19 17:19 Dose: 125 mls/hr Infusion: 09/11/19 15:48 Dose: 125 mls/hr Admin: 09/11/19 07:48 Dose: 125 mls/hr Infusion: 09/11/19 07:04 Dose: 125 mls/hr Admin: 09/10/19 23:04 Dose: 125 mls/hr Infusion: 09/10/19 22:01 Dose: 125 mls/hr Admin: 09/10/19 14:01 Dose: 125 mls/hr Infusion: 09/10/19 14:01 Dose: 125 mls/hr Admin: 09/10/19 06:16 Dose: 125 mls/hr Infusion: 09/10/19 04:56 Dose: 125 mls/hr Admin: 09/09/19 20:56 Dose: 125 mls/hr Infusion: 09/09/19 20:20 Dose: 125 mls/hr Admin: 09/09/19 12:20 Dose: 125 mls/hr Infusion: 09/09/19 10:28 Dose: 125 mls/hr Admin: 09/09/19 02:28 Dose: 125 mls/hr Ketorolac Tromethamine (Toradol) 30 mg IVPUSH Q6H [facility] Stop: 09/15/19 13:37 Last Admin: 09/12/19 12:48 Dose: 30 mg Admin: 09/12/19 06:44 Dose: 30 mg Admin: 09/12/19 00:19 Dose: 30 mg Admin: 09/11/19 19:03 Dose: 30 mg Admin: 09/11/19 14:15 Dose: 30 mg Admin: 09/11/19 07:47 Dose: 30 mg Admin: 09/11/19 01:35 Dose: 30 mg Admin: 09/10/19 18:57 Dose: 30 mg Admin: 09/10/19 13:55 Dose: 30 mg Pantoprazole Sodium (Protonix Iv) 40 mg IVPUSH DAILY [facility] Last Admin: 09/12/19 09:12 Dose: 40 mg Admin: 09/11/19 09:07 Dose: 40 mg Admin: 09/10/19 13:56 Dose: 40 mg Sodium Chloride (Saline Flush) 10 ml FLUSH ASDIRECTED PRN PRN Reason: Keep Vein Open Last Admin: 09/12/19 12:48 Dose: 10 ml Admin: 09/12/19 10:10 Dose: 10 ml Admin: 09/12/19 09:22 Dose: 10 ml Admin: 09/12/19 03:14 Dose: 10 ml Admin: 09/12/19 02:43 Dose: 10 ml Admin: 09/11/19 21:43 Dose: 10 ml Admin: 09/11/19 21:10 Dose: 10 ml Admin: 09/11/19 15:50 Dose: 10 ml - Assessment Assessment (Free Text/Narrative):: Post-op ileus - Plan Plan (Free Text/Narrative):: Will try suppository Maybe home later today if bowels work better.
[2019-09-13] MEDS: Ketorolac 30 MG/ML SDV IVPUSH SCH ×3 (00:23→15:00)
[2019-09-13] MEDS: Sodium Chloride 0.9% 10 ML Syringe FLUSH PRN ×5 (00:26→09:54)
[2019-09-13] MEDS: Piperacillin/Tazobactam 3.375 GM in Sodium Chloride 0.9% 50 ML IV SCH ×3 (02:49→15:01)
[2019-09-13] MEDS: Pantoprazole 40 MG Vial IVPUSH SCH (09:05)
--- NOTE | 2019-09-13 12:23 | PCM.SURGPN ---
- General Info Date of Service: 09/13/19 POD#: 5 Functional Status: Reports: Pain Controlled, Tolerating Diet, Ambulating, Urinating - Review of Systems General: Reports: No Symptoms Gastrointestinal: Reports: No Symptoms, Flatus (tarted about 0400) Genitourinary: Reports: No Symptoms - Patient Data Vitals - Most Recent: Last Vital Signs Temp 98.1 F 09/13/19 04:00 Pulse 79 09/13/19 04:00 Resp 16 09/13/19 04:00 BP 159/106 H 09/13/19 04:00 Pulse Ox 94 L 09/13/19 04:00 Weight - Most Recent: 74.843 kg I&O - Last 24 Hours: Intake & Output 09/12/19 09/13/19 09/13/19 22:59 06:59 14:59 Intake Total 250 250 Output Total 400 270 Balance -150 -20 Sume[place] Results Last 24 Hrs: Microbiology 09/08/19 17:48 Gram Stain - Final Peritoneal Fluid Routine Culture - Final Anaerobic Culture - Final No Growth 09/08/19 15:30 Aerobic Blood Culture - Preliminary Blood NO GROWTH AFTER 4 DAYS Anaerobic Blood Culture - Preliminary NO GROWTH AFTER 4 DAYS Med Orders - Current: Current Medications Piperacillin Sod/Tazobactam (Sod 3.375 gm/ Sodium Chloride) 50 mls @ 100 mls/ hr IV Q6H [facility] Stop: 09/13/19 21:01 Last Admin: 09/13/19 09:23 Dose: 100 mls/hr Lactated Ringer's (Ringers, Lactated) 1,000 mls @ 125 mls/hr IV ASDIRECTED [facility] Last Admin: 09/12/19 01:38 Dose: 125 mls/hr Ketorolac Tromethamine (Toradol) 30 mg IVPUSH Q6H [facility] Stop: 09/15/19 13:37 Last Admin: 09/13/19 06:33 Dose: 30 mg Pantoprazole Sodium (Protonix Iv) 40 mg IVPUSH DAILY [facility] Last Admin: 09/13/19 09:05 Dose: 40 mg Sodium Chloride (Saline Flush) 10 ml FLUSH ASDIRECTED PRN PRN Reason: Keep Vein Open Last Admin: 09/13/19 09:54 Dose: 10 ml Discontinued Medications Hydrocodone Bitart/Acetaminophen ([place] 325-5 Mg) 1 tab PO Q4H PRN PRN Reason: Pain (mild 1-3) Last Admin: 09/10/19 12:22 Dose: 1 tab Albuterol (Proventil Neb Soln) 2.5 mg NEB Q4H [facility] Last Admin: 09/10/19 07:28 Dose: Not Given Bisacodyl (Dulcolax) 10 mg RECTAL ONETIME ONE Stop: 09/12/19 13:18 Last Admin: 09/12/19 13:36 Dose: 10 mg Sodium Chloride (Normal Saline) 1,000 mls @ 999 mls/hr IV ASDIRECTED [facility] Last Admin: 09/08/19 15:30 Dose: 999 mls/hr Metronidazole 500 mg/ Premix 100 mls @ 100 mls/hr IV ONETIME ONE Stop: 09/08/19 16:17 Last Infusion: 09/08/19 16:10 Dose: 200 mls/hr Piperacillin Sod/Tazobactam (Sod 3.375 gm/ Sodium Chloride) 50 mls @ 100 mls/ hr IV NOW STA Stop: 09/08/19 16:03 Last Admin: 09/08/19 15:54 Dose: 100 mls/hr Iopamidol (Isovue-370 (76%)) 100 ml IV . DIRECTED ONE Stop: 09/10/19 12:32 Last Admin: 09/10/19 12:44 Dose: 100 ml Morphine Sulfate (Morphine) 2 mg IVPUSH Q1H PRN PRN Reason: Pain (severe 7-10) - Exam Wound/Incisions: Dressing Dry and Intact GI/Abdominal Exam: Soft, Non-Tender, Distended (lesws than yesterday) Sepsis Event Note - Evaluation Sepsis Screening Result: No Definite Risk - Focused Exam Vital Signs: Vital Signs Temp Pulse Resp BP Pulse Ox 09/13/19 04:00 98.1 F 79 16 159/106 H 94 L Date Exam was Performed: 09/13/19 Time Exam was Performed: 12:21 - Problem List Review Problem List Initiated/Reviewed/Updated: Yes - My Orders Last 24 Hours: Active Orders 24 hr Category Date Time Status Ready for Discharge [RC] PER UNIT ROUTINE Care 09/13/19 12:20 Ordered Medication Orders Piperacillin Sod/Tazobactam (Sod 3.375 gm/ Sodium Chloride) 50 mls @ 100 mls/ hr IV Q6H [facility] Stop: 09/13/19 21:01 Last Admin: 09/13/19 09:23 Dose: 100 mls/hr Admin: 09/13/19 02:49 Dose: 100 mls/hr Admin: 09/12/19 21:28 Dose: 100 mls/hr Admin: 09/12/19 15:04 Dose: 100 mls/hr Admin: 09/12/19 09:23 Dose: 100 mls/hr Admin: 09/12/19 02:44 Dose: 100 mls/hr Admin: 09/11/19 21:13 Dose: 100 mls/hr Admin: 09/11/19 15:50 Dose: 100 mls/hr Admin: 09/11/19 09:08 Dose: 100 mls/hr Admin: 09/11/19 03:06 Dose: 100 mls/hr Admin: 09/10/19 20:47 Dose: 100 mls/hr Admin: 09/10/19 14:47 Dose: 100 mls/hr Admin: 09/10/19 09:54 Dose: 100 mls/hr Admin: 09/10/19 03:31 Dose: 100 mls/hr Admin: 09/09/19 20:59 Dose: 100 mls/hr Admin: 09/09/19 14:57 Dose: 100 mls/hr Admin: 09/09/19 08:25 Dose: 100 mls/hr Admin: 09/09/19 02:30 Dose: 100 mls/hr Admin: 09/08/19 20:19 Dose: 100 mls/hr Lactated Ringer's (Ringers, Lactated) 1,000 mls @ 125 mls/hr IV ASDIRECTED [facility] Last Admin: 09/12/19 01:38 Dose: 125 mls/hr Infusion: 09/12/19 01:19 Dose: 125 mls/hr Admin: 09/11/19 17:19 Dose: 125 mls/hr Infusion: 09/11/19 15:48 Dose: 125 mls/hr Admin: 09/11/19 07:48 Dose: 125 mls/hr Infusion: 09/11/19 07:04 Dose: 125 mls/hr Admin: 09/10/19 23:04 Dose: 125 mls/hr Infusion: 09/10/19 22:01 Dose: 125 mls/hr Admin: 09/10/19 14:01 Dose: 125 mls/hr Infusion: 09/10/19 14:01 Dose: 125 mls/hr Admin: 09/10/19 06:16 Dose: 125 mls/hr Infusion: 09/10/19 04:56 Dose: 125 mls/hr Admin: 09/09/19 20:56 Dose: 125 mls/hr Infusion: 09/09/19 20:20 Dose: 125 mls/hr Admin: 09/09/19 12:20 Dose: 125 mls/hr Infusion: 09/09/19 10:28 Dose: 125 mls/hr Admin: 09/09/19 02:28 Dose: 125 mls/hr Ketorolac Tromethamine (Toradol) 30 mg IVPUSH Q6H [facility] Stop: 09/15/19 13:37 Last Admin: 09/13/19 06:33 Dose: 30 mg Admin: 09/13/19 00:23 Dose: 30 mg Admin: 09/12/19 19:13 Dose: 30 mg Admin: 09/12/19 12:48 Dose: 30 mg Admin: 09/12/19 06:44 Dose: 30 mg Admin: 09/12/19 00:19 Dose: 30 mg Admin: 09/11/19 19:03 Dose: 30 mg Admin: 09/11/19 14:15 Dose: 30 mg Admin: 09/11/19 07:47 Dose: 30 mg Admin: 09/11/19 01:35 Dose: 30 mg Admin: 09/10/19 18:57 Dose: 30 mg Admin: 09/10/19 13:55 Dose: 30 mg Pantoprazole Sodium (Protonix Iv) 40 mg IVPUSH DAILY [facility] Last Admin: 09/13/19 09:05 Dose: 40 mg Admin: 09/12/19 09:12 Dose: 40 mg Admin: 09/11/19 09:07 Dose: 40 mg Admin: 09/10/19 13:56 Dose: 40 mg Sodium Chloride (Saline Flush) 10 ml FLUSH ASDIRECTED PRN PRN Reason: Keep Vein Open Last Admin: 09/13/19 09:54 Dose: 10 ml Admin: 09/13/19 09:09 Dose: 10 ml Admin: 09/13/19 06:38 Dose: 10 ml Admin: 09/13/19 03:28 Dose: 10 ml Admin: 09/13/19 00:26 Dose: 10 ml Admin: 09/12/19 22:02 Dose: 10 ml Admin: 09/12/19 20:00 Dose: 10 ml Admin: 09/12/19 15:42 Dose: 10 ml Admin: 09/12/19 15:02 Dose: 10 ml Admin: 09/12/19 12:48 Dose: 10 ml Admin: 09/12/19 10:10 Dose: 10 ml Admin: 09/12/19 09:22 Dose: 10 ml Admin: 09/12/19 03:14 Dose: 10 ml Admin: 09/12/19 02:43 Dose: 10 ml Admin: 09/11/19 21:43 Dose: 10 ml Admin: 09/11/19 21:10 Dose: 10 ml Admin: 09/11/19 15:50 Dose: 10 ml - Assessment Assessment (Free Text/Narrative):: IIleus resolving - Plan Plan (Free Text/Narrative):: Will discharge to home
--- NOTE | 2019-09-13 12:28 | PCM.DCSUM1 ---
Discharge Summary - Hospital Course Free Text/Narrative:: Patient presented with 3 day hx of RLQ abd pain. Eval in ED revedled appendicitis on CT scan. Brought to surgery where he was found to have acute perforated appendicitis. Post of WBC returned to normal in 3 days, no fevers after day 2. Cultures showed e Coli. Abd became tense and distended causing some SOB. CT on POD#2 had findings consisted with ileus and atelactasis. Ileus slowy inproved aver the next few days and is now having flatus and tolerating liquids well. Path report shows acute perforated gangrenous appendicitis. - Discharge Data Discharge Date: 09/13/19 Discharge Disposition: Home, Self-Care 01 Condition: Good - Referral to Home Health Primary Care Physician: Chris Bonilla MD - Patient Summary/Data Operative Procedure(s) Performed: Lap Appy - Patient Instructions Diet: Full Liquid Diet (Avdvance slowly as tolerated at home) Activity: Cough & Deep Breathe (and use IS at home ), No Strenuous Activities ( for 1 week) Driving: May Drive Today Showering/Bathing: May Shower Wound/Incision Care: Keep Operative Site/Wound Site Clean and Dry Notify Provider of: Fever, Increased Pain, Nausea and/or Vomiting - Discharge Plan *PRESCRIPTION DRUG MONITORING PROGRAM REVIEWED*: Not Applicable *COPY OF PRESCRIPTION DRUG MONITORING REPORT IN PATIENT [place]: Not Applicable Home Medications: Home Meds NK [No Known Home Meds] 09/08/19 [History] Patient Handouts: Ileus, Laparoscopic Appendectomy, Adult, Fall Prevention in Hospitals, Adult, Venous Thromboembolism Prevention Forms: ED Department Discharge Referrals: Chris Bonilla MD [Primary Care Provider] - (f/u 09/[address] Bonilla) - Discharge Summary/Plan Comment DC Time >30 min.: No - Patient Data Vitals - Most Recent: Last Vital Signs Temp 98.1 F 09/13/19 04:00 Pulse 79 09/13/19 04:00 Resp 16 09/13/19 04:00 BP 159/106 H 09/13/19 04:00 Pulse Ox 94 L 09/13/19 04:00 Weight - Most Recent: 74.843 kg I&O - Last 24 hours: Intake & Output 09/12/19 09/13/19 09/13/19 22:59 06:59 14:59 Intake Total 250 250 Output Total 400 270 Balance -150 -20 [place] Results - Last 24 hrs: Microbiology 09/08/19 17:48 Gram Stain - Final Peritoneal Fluid Routine Culture - Final Anaerobic Culture - Final No Growth 09/08/19 15:30 Aerobic Blood Culture - Preliminary Blood NO GROWTH AFTER 4 DAYS Anaerobic Blood Culture - Preliminary NO GROWTH AFTER 4 DAYS Med Orders - Current: Current Medications Piperacillin Sod/Tazobactam (Sod 3.375 gm/ Sodium Chloride) 50 mls @ 100 mls/ hr IV Q6H [facility] Stop: 09/13/19 21:01 Last Admin: 09/13/19 09:23 Dose: 100 mls/hr Lactated Ringer's (Ringers, Lactated) 1,000 mls @ 125 mls/hr IV ASDIRECTED [facility] Last Admin: 09/12/19 01:38 Dose: 125 mls/hr Ketorolac Tromethamine (Toradol) 30 mg IVPUSH Q6H [facility] Stop: 09/15/19 13:37 Last Admin: 09/13/19 06:33 Dose: 30 mg Pantoprazole Sodium (Protonix Iv) 40 mg IVPUSH DAILY [facility] Last Admin: 09/13/19 09:05 Dose: 40 mg Sodium Chloride (Saline Flush) 10 ml FLUSH ASDIRECTED PRN PRN Reason: Keep Vein Open Last Admin: 09/13/19 09:54 Dose: 10 ml Discontinued Medications Hydrocodone Bitart/Acetaminophen ([place] 325-5 Mg) 1 tab PO Q4H PRN PRN Reason: Pain (mild 1-3) Last Admin: 09/10/19 12:22 Dose: 1 tab Albuterol (Proventil Neb Soln) 2.5 mg NEB Q4H [facility] Last Admin: 09/10/19 07:28 Dose: Not Given Bisacodyl (Dulcolax) 10 mg RECTAL ONETIME ONE Stop: 09/12/19 13:18 Last Admin: 09/12/19 13:36 Dose: 10 mg Sodium Chloride (Normal Saline) 1,000 mls @ 999 mls/hr IV ASDIRECTED [facility] Last Admin: 09/08/19 15:30 Dose: 999 mls/hr Metronidazole 500 mg/ Premix 100 mls @ 100 mls/hr IV ONETIME ONE Stop: 03/10/20 16:17 Last Infusion: 09/08/19 16:10 Dose: 200 mls/hr Piperacillin Sod/Tazobactam (Sod 3.375 gm/ Sodium Chloride) 50 mls @ 100 mls/ hr IV NOW STA Stop: 09/08/19 16:03 Last Admin: 09/08/19 15:54 Dose: 100 mls/hr Iopamidol (Isovue-370 (76%)) 100 ml IV . DIRECTED ONE Stop: 09/10/19 12:32 Last Admin: 09/10/19 12:44 Dose: 100 ml Morphine Sulfate (Morphine) 2 mg IVPUSH Q1H PRN PRN Reason: Pain (severe 7-10)
== END 2019-09-13 14:40 | disposition home or self-care (01) | DRG 225 ==
LOC: FB.ED 15:08 → FB.SDS 15:49 → FB.MS 19:22 → OBSVTOIN 19:23
PROVIDERS: ADMIT Surgery; ATTEND Surgery
PROC: 0DTJ4ZZ Resection of Appendix, Percutaneous Endoscopic Approach (ICD-10-PCS; principal; 2019-09-08)
DX: K35.32 Acute appendicitis with perforation, localized peritonitis, and gangrene, without abscess (principal); Z98.890 Other specified postprocedural states; K56.7 Ileus, unspecified; J98.11 Atelectasis; B96.20 Unspecified Escherichia coli [E. coli] as the cause of diseases classified elsewhere
CPT/HCPCS: 36415; 71046; 74176; 80048; 80053; 83605; 85025; 86140; 87040; 87070; 87075; 87205; 88304; 93005; 94150; 94640; 96365; 96375; 99285-25; A9270-GY; C9113; J0330; J1100; J1170; J1885; J2001; J2250; J2370; J2405; J2543; J2704; J2710; J3010; J3490; J7030; J7050; J7120; Q9967

== ENCOUNTER 2020-08-09 06:59 | Day surgery (SDC) | payer BC ==
[2020-08-09] MEDS ORDERED: Lactated Ringers 1,000 ML IV ONE (07:00)
[2020-08-09] MEDS ORDERED: Succinylcholine 200 MG/10 ML MDV IV ONE (07:00)
[2020-08-09] MEDS ORDERED: Propofol 200 MG/20 ML SDV IV ONE (07:00)
[2020-08-09] MEDS ORDERED: Ondansetron 4 MG/2 ML SDV IVPUSH ONE (07:00)
[2020-08-09] MEDS ORDERED: Midazolam 1 MG/ML 2 ML SDV IV ONE (07:00)
[2020-08-09] MEDS ORDERED: Rocuronium 50 MG/5 ML Vial IV ONE (07:00)
[2020-08-09] MEDS ORDERED: fentaNYL 100 MCG/2 ML SDV IV ONE (07:00)
[2020-08-09] MEDS ORDERED: Neostigmine Methylsulfate 10 MG/10 ML MDV IVPUSH ONE (07:00)
[2020-08-09] MEDS ORDERED: Ketorolac 30 MG/ML SDV IVPUSH ONE (07:00)
[2020-08-09] MEDS ORDERED: Sodium Chloride 0.9% 10 ML Syringe FLUSH PRN (07:00)
[2020-08-09] MEDS ORDERED: Lactated Ringers 1,000 ML IV SCH (07:00)
[2020-08-09] MEDS ORDERED: Glycopyrrolate 0.2 MG/ML 5 ML MDV IV ONE (07:00)
--- NOTE | 2020-08-09 08:40 | PCM.HPR ---
H & P Addendum review - H & P Addendum Review Date of Original H & P: 08/05/20 Date Reviewed: 08/09/20 Time Reviewed: 08:40 Patient was Examined: No Changes
--- NOTE | 2020-08-09 09:59 | PCM.OPNOTE ---
- General Post-Op/Procedure Note Date of Surgery/Procedure: 08/09/20 Operative Procedure(s): Lap Amrita Pre Op Diagnosis: Symptomatic Cholelithiasis Post-Op Diagnosis: Same with Chronic Cholecystitis Anesthesia Technique: General ET Tube Primary Surgeon: Chris Bonilla Anesthesia Provider: Denae Fernando Pathology: GB EBL in mLs: 5 Complications: None Condition: Good
--- NOTE | 2020-08-09 12:55 | OR ---
DATE OF OPERATION: 08/09/2020 SURGEON: Chris Bonilla MD PREOPERATIVE DIAGNOSIS: Symptomatic cholelithiasis. POSTOPERATIVE DIAGNOSIS: Symptomatic cholelithiasis with chronic cholecystitis. ANESTHESIA: General. DESCRIPTION OF PROCEDURE: The patient was brought to the operating room, where general endotracheal anesthesia was administered. The abdomen was clipped, prepped with ChloraPrep and draped sterilely. An infraumbilical incision was made and extended into the peritoneal cavity without difficulty. The Ethel cannula was introduced and pneumoperitoneum obtained. The remaining three 5 mm ports were placed in the usual positions. The patient was placed in reverse Trendelenburg position and rotated to the left. The gallbladder was grasped and had some filmy omental adhesions on the undersurface that were taken down with blunt dissection, and electrocautery to expose the gallbladder. The cystic duct and cystic artery were dissected free with minimal difficulty. There was some chronic inflammation present. The cystic duct and cystic artery anatomy were well defined. Each of these structures was doubly clipped proximally and once distally and then transected. The gallbladder was then removed from the bed of the liver with some difficulty because of dense connection to the liver. I was able to remove the gallbladder intact without any bile leakage. The gallbladder was brought out through the umbilical incision. A right upper quadrant was thoroughly irrigated and inspected and return was clear and hemostasis assured. Ports were removed under direct vision and remained hemostatic. Umbilical fascia was closed with [id number] #0 Vicryl. Skin was closed with #4-0 Vicryl subcuticular sutures. Benzoin and Steri-Strips were placed, and Band-Aids applied. The patient tolerated the procedure well. Estimated blood loss, 5 mL. He returned to postanesthesia in stable condition. /[id number] SIRENA/LILY
== END 2020-08-09 12:00 | disposition home or self-care (01) ==
LOC: FB.SDS 06:59
PROVIDERS: ATTEND Surgery
DX: K80.10 Calculus of gallbladder with chronic cholecystitis without obstruction (principal); Z90.49 Acquired absence of other specified parts of digestive tract; Z01.812 Encounter for preprocedural laboratory examination; Z20.822 Contact with and (suspected) exposure to COVID-19
CPT/HCPCS: 00790-QZ; 88304; 94150; J0330; J1885; J2250; J2405; J2704; J2710; J3010; J3490; J7120; U0002